=== PATIENT | female | born 1965 | race African-American/Black ===

== ENCOUNTER 2016-08-25 02:13 | Emergency (ER) | payer BC ==
--- NOTE | 2016-08-25 02:22 | PDOC ---
History of Present Illness - General History Source: Patient Exam Limitations: No Limitations - History of Present Illness Initial Comments: 08/25/16 02:41 The patient is a 51-year-old female, with a significant past medical history of HTN, thyroid disease (on levothyroxine), and lupus, who presents to the ED with right-sided flank. The patient states that she went out to eat and drink two nights ago and woke up yesterday with intermittent right-sided flank pain. The patient denies any fever, chills, nausea, vomiting, or diarrhea. The patient denies any shortness of breath or chest pain. <Deb Madsen - Last Filed: 08/25/16 02:41> <Eva Oliva - Last Filed: 08/25/16 05:15> - General Stated Complaint: ABDOMINAL PAIN Time Seen by Provider: 08/25/16 02:19 Past History <Deb Madsen - Last Filed: 08/25/16 02:41> - Past Medical History HTN: Yes - Psycho/Social/Smoking Cessation Hx Anxiety: No Suicidal Ideation: No Smoking Status: No Smoking History: Never smoked Number of Cigarettes Smoked Daily: 0 Hx Alcohol Use: No <Eva Oliva - Last Filed: 08/25/16 05:15> - Past Medical History Allergies/Adverse Reactions: Allergies Allergy/AdvReac Type Severity Reaction Status Date / Time No Known Allergies Allergy Verified 08/25/16 02:32 Home Medications: Ambulatory Orders Amlodipine Besylate 10 mg PO DAILY 08/25/16 Levothyroxine [Synthroid -] 50 mcg PO DAILY 08/25/16 Review of Systems - Review of Systems Comments:: 08/25/16 02:41 GENERAL/CONSTITUTIONAL: No fever or chills. No weakness. HEAD, EYES, EARS, NOSE AND THROAT: No change in vision. No ear pain or discharge. No sore throat. CARDIOVASCULAR: No chest pain or shortness of breath. RESPIRATORY: No cough, wheezing, or hemoptysis. GASTROINTESTINAL: No nausea, vomiting, diarrhea or constipation. GENITOURINARY: No dysuria, frequency, or change in urination. MUSCULOSKELETAL: No joint swelling or pain. No neck pain. +right-sided flank pain SKIN: No rash NEUROLOGIC: No headache, vertigo, loss of consciousness, or change in strength/ sensation. ENDOCRINE: No increased thirst. No abnormal weight change. HEMATOLOGIC/LYMPHATIC: No anemia, easy bleeding, or history of blood clots. ALLERGIC/IMMUNOLOGIC: No hives or skin allergy. <Deb Madsen - Last Filed: 08/25/16 02:41> *Physical Exam - Vital Signs Last Vital Signs Temp Pulse Resp BP Pulse Ox 98.5 F 130 H 20 164/87 100 08/25/16 02:33 08/25/16 02:33 08/25/16 02:33 08/25/16 02:33 08/25/16 02:33 - Physical Exam Comments: 08/25/16 02:42 GENERAL: Awake, alert, and fully oriented, in no acute distress. Afebrile. + Anxious, shaky HEAD: No signs of trauma ENT: Auricles normal inspection, hearing grossly normal, nares patent, oropharynx clear EYES: PERRLA, EOMI, sclera anicteric, conjunctiva clear without exudates. Moist mucosa. NECK: Normal ROM, supple, no lymphadenopathy, JVD, or masses LUNGS: Breath sounds equal, clear to auscultation bilaterally. No wheezes, and no crackles HEART: Normal S1 and S2, no murmurs, rubs or gallops. +Tachycardic ABDOMEN: Soft, nontender, normoactive bowel sounds. No guarding, no rebound. No masses EXTREMITIES: Normal range of motion, no pitting edema. No clubbing or cyanosis. No cords, erythema, or tenderness NEUROLOGICAL: Cranial nerves II through XII grossly intact. Normal speech, normal gait. Reflexes brisk but equal throughout SKIN: Warm, Dry, normal turgor, no rashes or lesions noted <Deb Madsen - Last Filed: 08/25/16 02:41> ED Treatment Course - LABORATORY CBC & Chemistry Diagram: 08/25/16 03:00 08/25/16 03:00 <Eva Oliva - Last Filed: 08/25/16 05:15> Medical Decision Making - Medical Decision Making 08/25/16 03:57 Pt's heart rate is 130-146 on arrival. She tells me that her PMD recently started her on levothyroxine. In the ER pt is tachycardic and warm. Rectal temp is not febrile. Pt has no complaints other than right flank pain. 08/25/16 04:16 On arrival, pt's HR fluctuates from 130 to 146; when EKG was done, HR went down to 96. Pt states that she is taking 50mcg Thyroxine daily; inspite of this, pt' s TSH is elevated at 5. 08/25/16 04:47 Pt is refusing meds, refusing CXR. She will be given a copy of her lab results and asked to follow with her PMD so that he may adjust her synthroid accordingly. <Eva Oliva - Last Filed: 08/25/16 05:15> *DC/Admit/Observation/Transfer - Attestations Scribe Attestion: 08/25/16 02:47 Documentation prepared by Deb Madsen, acting as medical intern for Eva Oliva MD. <Deb Madsen - Last Filed: 08/25/16 02:41> - Discharge Dispostion Admit: No <Eva Oliva - Last Filed: 08/25/16 05:15> Diagnosis at time of Disposition: Hypothyroid, Palpitations - Discharge Dispostion Disposition: HOME Condition at time of disposition: Stable - Referrals Referrals: Yves Shoemaker [Primary Care Provider] - - Patient Instructions Printed Discharge Instructions: DI for Hypothyroidism
[2016-08-25] MEDS ORDERED: ACETAMINOPHEN 1000 MG/100 ML VIAL (NON FORMULARY) IVPB ONE (02:23)
[2016-08-25] MEDS ORDERED: SODIUM CHLORIDE 0.9% 500 ML INFUS.BAG IV ONE (02:23)
[2016-08-25 02:36] VITALS: TEMP 98.5; BMI 29.2
[2016-08-25] MEDS ORDERED: METOPROLOL TARTRATE 5 MG/5 ML VIAL IVPUSH ONE (02:36)
[2016-08-25] MEDS ORDERED: METOPROLOL TARTRATE 50 MG TABLET (FP) PO ONE (02:37)
[2016-08-25 03:12] LABS: BASOPHIL 0.4 % (0-2.0); EOSINOPHIL 1.2 % (0-4.5); MCH 28.9 pg (25.7-33.7); MCHC 32.4 g/dl (32.0-36.0); MEAN CELL VOLUME 89.1 fl (80-96); MEAN PLT VOLUME 8.1 fl (7.5-11.1); NEUTROPHILS 49.1 % (42.8-82.8); PLATELET COUNT 231 K/MM3 (134-434); RDW 13.5 % (11.6-15.6); WHITE BLOOD COUNT 4.1 K/mm3 (4.0-10.0)
[2016-08-25] MEDS ORDERED: METOPROLOL TARTRATE 50 MG TABLET (FP) ONE (03:16)
[2016-08-25] MEDS ORDERED: METOPROLOL TARTRATE 5 MG/5 ML VIAL ONE (03:16)
[2016-08-25] MEDS ORDERED: ACETAMINOPHEN INJECTION 100 ML IVPB ONE (03:17)
[2016-08-25 03:32] LABS: AMYLASE 110 U/L (25-115); ANION GAP 9 (8-16); BILIRUBIN,TOTAL 0.4 mg/dL (0.2-1.0); CALCIUM 9.1 mg/dL (8.5-10.1); CO2 29 mmol/L (21-32); COCKROFT - GAULT 129.9395; CREATININE 0.6 mg/dL (0.55-1.02); GLUCOSE,RANDOM 101 mg/dL (74-106); SGOT/AST 25 U/L (15-37); SGPT/ALT 36 U/L (12-78); TOT PROT 8.4 g/dl (6.4-8.2)
[2016-08-25 03:33] LABS: ALK PHOS 73 U/L (45-117); THYROXINE (T4) 12.4 ug/dl (4.8-13.9)
[2016-08-25 03:36] LABS: TROPONIN I < 0.02 ng/ml (0.00-0.05)
[2016-08-25 03:39] LABS: THYROID STIMULATING HORMONE 5.01 uIU/ml (0.358-3.74)
[2016-08-25 04:19] VITALS: BP 141/85; PULSE 87
[2016-08-25 04:21] LABS: URINE APPEARANCE CLEAR; URINE BILIRUBIN NEGATIVE (NEGATIVE); URINE BLOOD NEGATIVE (NEGATIVE); URINE COLOR STRAW; URINE GLUCOSE (UA) NEGATIVE (NEGATIVE); URINE KETONE NEGATIVE (NEGATIVE); URINE NITRITE NEGATIVE (NEGATIVE); URINE PROTEIN NEGATIVE (NEGATIVE); URINE UROBILINOGEN NEGATIVE E.U./dl (0.2-1.0)
[2016-08-25 04:23] LABS: URINE LEUK ESTERASE 3+ (NEGATIVE)
[2016-08-25 04:32] LABS: URINE BACTERIA RARE /hpf (NONE SEEN); URINE RBC 1 /hpf (0-3); URINE WBC 10 /hpf (3-5)
--- NOTE | 2016-08-25 19:17 | EKG ---
Test Reason : Blood Pressure : / mmHG Vent. Rate : 097 BPM Atrial Rate : 097 BPM P-R Int : 138 ms QRS Dur : 082 ms QT Int : 354 ms P-R-T Axes : 065 063 036 degrees QTc Int : 449 ms POOR DATA QUALITY, INTERPRETATION MAY BE ADVERSELY AFFECTED NORMAL SINUS RHYTHM POSSIBLE LEFT ATRIAL ENLARGEMENT LEFT VENTRICULAR HYPERTROPHY NONSPECIFIC ST ABNORMALITY ABNORMAL ECG WHEN COMPARED WITH ECG OF 10-AUG-2013 11:05, ST NO LONGER ELEVATED IN ANTERIOR LEADS Confirmed by LATRICE BOUCHER MD ([id number]) on 08/25/2016 7:16:56 PM Referred By: Confirmed By:LATRICE BOUCHER MD
== END 2016-08-25 05:29 | disposition home or self-care (01) ==
LOC: JER 02:13
PROC: 3E033NZ Introduction of Analgesics, Hypnotics, Sedatives into Peripheral Vein, Percutaneous Approach (ICD-10-PCS; principal; 2016-08-25)
DX: R00.2 Palpitations (principal); E03.9 Hypothyroidism, unspecified; I10 Essential (primary) hypertension
CPT/HCPCS: 36415; 80053; 81003; 81015; 82150; 82550; 83690; 84436; 84443; 84484; 84703; 85025; 93005; 93010; 99283-25

== ENCOUNTER 2020-07-03 05:03 | Emergency (ER) | payer BC ==
[2020-07-03 05:26] VITALS: TEMP 98.1; BMI 25.6
[2020-07-03 06:29] LABS: BASO % 0.3 % (0-2.0); EOS % 1.2 % (0-4.5); HEMOGLOBIN 10.9 GM/dL (10.7-15.3); LYMPH % 19.9 % (8-40); MCH 29.8 pg (25.7-33.7); MCHC 33.1 g/dl (32.0-36.0); MEAN CELL VOLUME 90.1 fl (80-96); MEAN PLT VOLUME 6.9 fl (7.5-11.1); MONO % 14.4 % (3.8-10.2); NEUT % 64.2 % (42.8-82.8); PLATELET COUNT 233 K/MM3 (134-434); RBC 3.66 M/mm3 (3.60-5.2); RDW 13.2 % (11.6-15.6); WHITE BLOOD COUNT 3.7 K/mm3 (4.0-10.0)
[2020-07-03] MEDS ORDERED: SODIUM CHLORIDE 0.9% 500 ML INFUS.BAG IV ONE (06:35)
[2020-07-03 06:48] LABS: INR 1.09 (0.83-1.09); PROTHROMBIN TIME (PATIENT) 13.4 SEC (9.7-13.0)
[2020-07-03 06:49] LABS: CHLORIDE 105 mmol/L (98-107); SODIUM 137 mmol/L (136-145)
[2020-07-03 06:51] LABS: ACTIVATED PTT 24.5 SECONDS (25.2-36.5); ALBUMIN 3.4 g/dl (3.4-5.0); ANION GAP 6 MMOL/L (8-16); BLOOD UREA NITROGEN 12.3 mg/dL (7-18); CALCIUM 8.8 mg/dL (8.5-10.1); CO2 27 mmol/L (21-32); GLUCOSE,RANDOM 99 mg/dL (74-106); MAGNESIUM 1.8 mg/dL (1.8-2.4)
[2020-07-03 06:54] LABS: CREATININE 0.5 mg/dL (0.55-1.3); SGOT/AST 82 U/L (15-37); SGPT/ALT 65 U/L (13-61)
[2020-07-03 06:57] LABS: ALK PHOS 56 U/L (45-117); BILIRUBIN,TOTAL 0.3 mg/dL (0.2-1); TOT PROT 7.8 g/dl (6.4-8.2)
[2020-07-03 10:32] LABS: PH,URINE 7.5 (5.0-8.0); URINE APPEARANCE CLEAR; URINE BILIRUBIN NEGATIVE (NEGATIVE); URINE COLOR YELLOW; URINE GLUCOSE (UA) NEGATIVE (NEGATIVE); URINE KETONE NEGATIVE (NEGATIVE); URINE LEUK ESTERASE NEGATIVE (NEGATIVE); URINE NITRITE NEGATIVE (NEGATIVE); URINE PROTEIN NEGATIVE (NEGATIVE); URINE UROBILINOGEN 0.2 mg/dL (0.2-1.0)
[2020-07-03 10:43] VITALS: BP 123/77; PULSE 82
== END 2020-07-03 10:40 | disposition home or self-care (01) ==
LOC: JER 05:03
DX: R00.2 Palpitations (principal)
CPT/HCPCS: 36415; 71045-TC-FY; 71275-TC; 80053; 81003; 82550; 82553; 83735; 84443; 84484; 85025; 85379; 85610; 85730; 87086; 93005; 93010; 99284-25; Q9967